=== PATIENT | female | born 1960 | race Caucasian/White ===

== ENCOUNTER 2025-01-07 01:00 | Observation (INO) ==
[2025-01-07] MEDS ORDERED: DOCUSATE SODIUM 100 MG CAPSULE PO PRN (01:35)
[2025-01-07] MEDS ORDERED: MORPHINE SULFATE 2 MG/ML CARTRIDGE IV PRN (01:35)
[2025-01-07] MEDS ORDERED: ACETAMINOPHEN 1000 MG/100 ML 1,000 MG/100 ML IV.SOLN IV PRN (01:41)
[2025-01-07] MEDS: 0.9 % SODIUM CHLORIDE 1000 ML 1,000 ML IV SCH (02:30)
[2025-01-07] MEDS: KETOROLAC 30 MG/ML INJ VIAL IVP PRN (02:33)
[2025-01-07] MEDS: ONDANSETRON HCL/PF 4 MG/2 ML VIAL INJ PRN (02:34)
[2025-01-07] MEDS: ALBUMIN HUMAN 25% 100 ML IV SCH (09:19)
[2025-01-07] MEDS: PANTOPRAZOLE SODIUM 40 MG TABLET.DR PO SCH (09:19)
--- NOTE | 2025-01-07 10:26 | History & Physical Report ---
H&P: HPI History of Present Illness Chief complaint: ongoing wound care, hydration therapy Narrative: Patient is a 64-year-old female admitted to Med/Surg from [facility] for ongoing wound care and hydration therapy where she was admitted from [facility] [place] on 01/02/2025 for wounds on her back and buttocks needing surgical intervention and appropiate dressings and original HPI from 01/01/2025 Ms. Shelby was admitted on 01/01/25 from the ED where she presented by EMS due to AMS, weakness found at home under garbage covered in roaches. She is awake this morning oriented to day but does not recall the events that led her here. APS has an ongoing case with her. WBC elevated on admit at 22 down to 18 this morning still no source of infection CXR and UA negative. BUN initially 141 down to 122 this morning, creatinine 3.3 to 2.7, ck 1387 to 991. Patient is on farxiga at home. Review of Systems Status of ROS 10 or more systems reviewed and unremark able except as noted in history and below Constitutional Reports: fatigue and malaise; Denies: fever, chills or change in weight Eyes Denies: change in vision, blurry vision, blind spots or light sensitivity Ears, nose, mouth, and throat Denies: throat pain, neck pain, throat swelling or difficulty swallowing Cardiovascular Denies: chest pain, palpitations, edema or swelling of feet/ankles Respiratory Reports: cough; Denies: shortness of breath, wheezing or stridor Gastrointestinal Reports: diarrhea (c. diff negative prior to return to [place]); Denies: abdominal pain, nausea, vomiting, coffee grounds in vomit, heartburn, constipation or difficulty swallowing Genitourinary Reports: urinary incontinence; Denies: painful urination, urinary frequency or urinary urgency Musculoskeletal Reports: limited range of motion and muscle weakness; Denies: back pain, neck pain, extremity pain or extremity swelling Integumentary/Breast Reports: skin pain and sores; Denies: rash, itching or redness Neurological Reports: lack of coordination; Denies: headache or numbness in extremities Psychiatric Reports: anxiety (not had xanax recently and she states she is all to pieces), memory loss and difficulty concentrating; Denies: mood swings, panic attacks or change in sleep pattern Endocrine Reports: fatigue; Denies: excessive urination, excessive thirst or cold intolerance Hematologic/Lymphatic Denies: easy bruising, easy bleeding or enlarged lymph nodes Allergic/Immunologic Denies: hives, throat swelling, tongue swelling, facial swelling, wheezing or itchy eyes PFSH PFSH Medical History Drug abuse and dependence Rhabdomyolysis TIA (transient ischemic attack) Kidney disease Anxiety Acute rheumatoid arthritis Blank's palsy Colon cancer Diabetes Surgical History History of colon resection Hx of breast reduction, elective Hx of cholecystectomy Hx of heart artery stent Social History Smoking status: never smoker Problems where you live: pests, such as bugs, ants, or mice Highest level of school completed/degree received: decline to answer Little interest or pleasure in doing things: not at all Feeling down, depressed, or hopeless: not at all Feel stressed/tense/nervous/anxious/difficulty sleeping: decline to answer Life stressors: other (none) Life stressor details: Current living and medical situation Due to disability, difficulty making decisions: No Gender Identity: female Meds Home Medications and Allergies Home Medications Medication Instructions Recorded Confirmed Type dexlansoprazole 60 mg 60 mg PO DAILY 03/09/24 01/07/25 History capsule,biphase delayed release famotidine 40 mg tablet 40 mg PO DAILY 03/09/24 01/07/25 History levothyroxine 75 mcg tablet 75 mcg PO DAILY 03/09/24 01/07/25 History oxycodone myristate 9 mg capsule 9 mg PO DAILY PRN pain (scale 03/09/24 01/07/25 History sprinkle extended release 12 score 7-10) hr(DON'T CRUSH) (Xtampza ER) pregabalin 200 mg capsule 200 mg PO TID 03/09/24 01/07/25 History tizanidine 4 mg tablet 4 mg PO TID 03/09/24 01/07/25 History ubrogepant 100 mg tablet (Ubrelvy) 100 mg PO DAILY PRN asthma 03/09/24 01/07/25 History hydrocodone 10 mg-acetaminophen 1 tab PO Q12H PRN pain 11/19/24 01/07/25 History 325 mg tablet promethazine 25 mg tablet 25 mg PO Q8H PRN nausea and 11/19/24 01/07/25 History vomiting quetiapine 100 mg tablet 100 mg PO BEDTIME 11/19/24 01/07/25 History losartan 100 mg tablet 100 mg PO DAILY htn #30 tabs 11/21/24 01/07/25 Rx magnesium 200 mg tablet 400 mg (2 x 200 mg) PO BID low mag 11/21/24 01/07/25 Rx #20 tabs alcohol swabs (Alcohol Pads) 1 pad topical BID 01/01/25 01/07/25 History alprazolam 1 mg tablet 1 mg PO TID 01/01/25 01/07/25 History clopidogrel 75 mg tablet 75 mg PO DAILY 01/01/25 01/07/25 History dapagliflozin propanediol 10 mg 10 mg PO DAILY 01/01/25 01/07/25 History tablet (Farxiga) fluticasone fur. 100 mcg-umeclid 1 inh inhalation Q24H 01/01/25 01/07/25 History 62.5 mcg-vilant 25 mcg inhalat.powder (Trelegy Ellipta) mirabegron 25 mg tablet,extended 25 mg PO Q24H PRN overactive 01/01/25 01/07/25 History release 24 hr (Myrbetriq) bladder sertraline 50 mg tablet 50 mg PO Q24H 01/01/25 01/07/25 History Allergies Allergy/AdvReac Type Severity Reaction Status Date / Time amoxicillin (From Augmentin) Allergy Verified 12/31/24 17:11 clavulanic acid (From Allergy Verified 12/31/24 17:11 Augmentin) codeine Allergy Verified 12/31/24 17:11 Exam Exam: Patient in NAD. Constitutional: abnormal general appearance (disheveled), (chronically ill) and (frail appearing), no apparent distress, average body habitus, limitations noted (behavioral limitations) and (physical limitations) and level of alertness abnormal (confused) Vital Signs - 24 hr 01/07/25 01:29 01/07/25 01:36 01/07/25 04:16 Temperature 98.3 F 98.6 F Pulse Rate [Left] 85 82 Respiratory Rate 17 17 Blood Pressure [Le ft Arm] 131/66 133/64 Pulse Oximetry 98 99 Oxygen Delivery Me thod Room Air Room Air 01/07/25 08:01 Temperature 97.9 F Pulse Rate [Left] 91 H Respiratory Rate 20 Blood Pressure [Le ft Arm] 164/79 Pulse Oximetry 99 Oxygen Delivery Me thod Room Air HENMT: normocephalic, head/scalp atraumatic, hearing grossly normal bilaterally, external ears normal, TMs abnormal, nasal mucous membranes normal, external nose normal, oral mucous membranes abnormal (dry), oropharynx normal, dentition abnormal and gingiva normal Eyes: PERRL, EOMs intact bilaterally, conjunctivae normal, no scleral icterus, no papilledema, normal visual degroot by confrontation, alignment normal, periorbital findings normal and no nystagmus Neck/C-Spine: trachea midline, cervical spine nontender, abnormal cervical ROM noted, supple, no meningeal signs, thyroid normal and no carotid bruits Lymph: no lymphadenopathy noted and no lymphedema noted Chest: inspection of chest normal Respiratory: breath sounds equal bilaterally, normal respiratory effort, clear to auscultation bilaterally, no wheezes, no rales, no retractions and no use of accessory muscles Cardiovascular: normal heart rate noted, regular rhythm noted, no gallop, no rub, no murmur, no JVD, no clicks, peripheral pulses 2+ throughout and no bruits noted Gastrointestinal: abdomen normal to inspection, abdomen soft to palpation, nontender to palpation, nondistended, normoactive bowel sounds, hepatosplenomegaly noted, no masses, no pulsatile mass, no ascites and no hernia Genitourinary: no CVA tenderness, bladder normal to palpation and external appearance abnormal Back/Pelvis: spine abnormal to inspection (wounds thoracic to lumbar - improving), thoracic spine tenderness noted, no lumbar spine tenderness, thoracic spine ROM abnormal, lumbar spine ROM abnormal and straight leg raise abnormal Extremities: normal to inspection, normal to palpation, no tenderness, full ROM, no joint enlargement and no deformity Neurology: cage maker II-XII intact, no movement abnormality noted, no focal motor deficit noted, sensory deficit noted, deep tendon reflexes 2+ bilaterally, gait abnormality noted (unable to access), speech abnormality noted, coordination abnormality noted, no pronator drift noted, no fasciculations noted and GCS calculation - Eye opening: Spontaneous Verbal response: Confused Motor response: Obey commands [place] Coma Scale total score: 14 No new movement Abnormality or focal motor deficits. Patient continues to have debilitating weakness is not able to get up or move on her own. Psychiatry: Mental Status Exam documented within this Exam's Psych section mental status grossly normal, orientation abnormal (disoriented to time), though t process abnormality noted (confused), cooperative, affect abnormality noted (depressed) and (flat), psychomotor abnormality noted (slow) and memory abnormal talking today and recognizes me without an introduction today Feel stressed/tense/nervous/anxious/difficulty sleeping: not at all Skin: skin color abnormal Reports (pale), rash noted (posterior sacrum - improving) Reports (excoriated), lesion(s) noted, no ecchymosis noted, wound(s) noted (dressing in place so not seen today) Reports (deep), no lacerations, skin turgor abnormal, no jaundice, no petechiae, no mottling, nails abnormality noted and no alopecia Assessment and Plan Assessment and Plan (1) Pressure ulcer of back: Qualifiers: Pressure injury stage: unstageable Qualified Code(s): L89.100 - Pressure ulcer of unspecified part of back, unstageable Code(s): L89.109 - Pressure ulcer of unspecified part of back, unspecified stage (2) Bed sore on ankle, right, unstageable: Code(s): L89.510 - Pressure ulcer of right ankle, unstageable (3) Dehydration: Code(s): E86.0 - Dehydration (4) Diabetes: Qualifiers: Diabetes mellitus complication status: with hyperglycemia Diabetes mellitus care home insulin use: with care home use Diabetes mellitus type: type 2 Qualified Code(s): E11.65 - Type 2 diabetes mellitus with hyperglycemia; Z79.4 - long term care social worker (current) use of insulin Code(s): E11.9 - Type 2 diabetes mellitus without complications (5) Hypoalbuminemia: Code(s): E88.09 - Other disorders of plasma-protein metabolism, not elsewhere classified (6) Bed sore on ankle, left, unstageable: Code(s): L89.520 - Pressure ulcer of left ankle, unstageable (7) Dementia: Qualifiers: Dementia behavioral or psychological symptom: unspecified whether behavioral, psychotic, or mood disturbance or anxiety Dementia severity: unspecified severity Dementia type: unspecified type Qualified Code(s): F03.90 - Unspecified dementia, unspecified severity, without behavioral disturbance, psychotic disturbance, mood disturbance, and anxiety Code(s): F03.90 - Unspecified dementia, unspecified severity, without behavioral disturbance, psychotic disturbance, mood disturbance, and anxiety (8) Debility: Code(s): R53.81 - Other malaise (9) Chronic pain: Qualifiers: Chronic pain type: other chronic pain Qualified Code(s): G89.29 - Other chronic pain Code(s): G89.29 - Other chronic pain (10) CAD (coronary artery disease): Qualifiers: Associated angina: without angina Coronary Disease-Associated Artery/Lesion type: unspecified vessel or lesion type [place] vs. transplanted heart: [place] heart Qualified Code(s): I25.10 - Atherosclerotic heart disease of [place] coronary artery without angina pectoris Code(s): I25.10 - Atherosclerotic heart disease of [place] coronary artery without angina pectoris (11) HTN (hypertension): Qualifiers: Hypertension type: primary hypertension Qualified Code(s): I10 - Essential (primary) hypertension Code(s): I10 - Essential (primary) hypertension (12) Failure to thrive in adult: Code(s): R62.7 - Adult failure to thrive Plan Sodium Chloride 1,000 mls @ 75 mls/hr IV CONT Albumin Human 100 mls @ 60 mls/hr IV ONCE Pantoprazole Sodium 40 mg PO DAILY Ondansetron Hcl 4 mg INJ Q6H PRN Docusate Sodium 100 mg PO DAILY PRN Morphine Sulfate 2 mg IV Q4H PRN Acetaminophen 1,000 mg in 100 mls @ 400 mls/hr IV Q6H PRN Ketorolac Tromethamine 15 mg IVP Q6H PRN Placement for Correction PT/OT/ST Rachelal
[2025-01-07] MEDS ORDERED: HYDROCODONE/APAP 10/325 MG 1 EACH TABLET PO PRN (12:12)
[2025-01-07] MEDS ORDERED: ALPRAZolam 0.5 MG TABLET PO PRN (12:14)
[2025-01-07] MEDS ORDERED: PANTOPRAZOLE SODIUM 40 MG TABLET.DR PO SCH (13:00)
[2025-01-07] MEDS: CLOPIDOGREL BISULFATE 75 MG TABLET PO SCH (13:21)
[2025-01-07] MEDS: EMPAGLIFLOZIN 10 MG TABLET PO SCH (13:21)
[2025-01-07] MEDS: LOSARTAN POTASSIUM 50 MG TABLET PO SCH (13:21)
[2025-01-07] MEDS: PREGABALIN 100 MG CAPSULE PO SCH (15:21)
[2025-01-07] MEDS: TIZANIDINE HCL 4 MG TABLET PO SCH (15:21)
[2025-01-07] MEDS: BUDESONIDE/FORMOTEROL FUMARATE 160/4.5 MCG INH SCH (21:09)
[2025-01-07] MEDS: FAMOTIDINE 20 MG TABLET PO SCH (21:10)
[2025-01-07] MEDS: QUETIAPINE FUMARATE 100 MG TABLET PO SCH (21:10)
[2025-01-07] MEDS: MAGNESIUM OXIDE 400 MG TABLET PO SCH (21:10)
[2025-01-08 05:22] LABS: Basophils #(Absolute) Auto 0.1 (0.0-0.1); Basophils%(Percent) Auto 0.8 (0.1-0.85); Eosinophils#(Absolute)Auto 0.2 (0.0-0.2); Eosinophils%(Percent) Auto 3.3 % (0.4-2.8); Granulocytes % - Auto 54.9 % (47.8-71.3); Granulocytes#(Absolute)- Auto 3.9 (2.3-6.0); Hematocrit 33.3 % (35.9-46.7); Mean Corpuscular Volume 92.9 fl (81.0-93.7); Monocytes #(Absolute)- Auto 0.5 (1.1-3.1); Monocytes %(Percent)- Auto 7.1 % (3.6-9.8); Platelet Count 113 K/uL (152-353); White Blood Count 7.1 K/uL (4.3-9.3)
[2025-01-08] MEDS: LEVOTHYROXINE SODIUM 75 MCG TABLET PO SCH (08:57)
[2025-01-08] MEDS: TIOTROPIUM BROMIDE 18 MCG CAP.W.DEV INH SCH (08:57)
[2025-01-08] MEDS: SERTRALINE HCL 50 MG TABLET PO SCH (08:58)
[2025-01-08] MEDS: MAGNESIUM OXIDE 400 MG TABLET PO ONE ×2 (10:20→10:48)
--- NOTE | 2025-01-08 10:28 | Progress Note ---
Progress Note: Subjective Subjective Interval history: Patient had an uneventful night. Exam Exam: Patient in NAD. Constitutional: abnormal general appearance (disheveled), (chronically ill) and (frail appearing), no apparent distress, average body habitus, limitations noted (behavioral limitations) and (physical limitations) and level of alertness abnormal (confused) Vital Signs - 24 hr 01/07/25 12:00 01/07/25 13:21 01/07/25 16:00 Temperature 98.2 F 98.2 F Pulse Rate [Left] 82 79 Respiratory Rate 19 17 Blood Pressure 149/71 Blood Pressure [Le ft Arm] 149/71 188/91 Pulse Oximetry 96 99 Oxygen Delivery Me thod Room Air Room Air 01/07/25 19:29 01/07/25 23:19 01/08/25 03:35 Temperature 98.5 F 98.0 F 98.0 F Pulse Rate [Left] 68 61 68 Respiratory Rate 16 17 19 Blood Pressure Blood Pressure [Le ft Arm] 143/62 105/49 124/43 Pulse Oximetry 97 98 98 Oxygen Delivery Me thod Room Air Room Air Room Air 01/08/25 07:41 01/08/25 08:59 Temperature 98.8 F Pulse Rate [Left] 71 Respiratory Rate 20 Blood Pressure 115/79 Blood Pressure [Le ft Arm] 115/79 Pulse Oximetry 97 Oxygen Delivery Me thod Room Air HENMT: normocephalic, head/scalp atraumatic, hearing grossly normal bilaterally, external ears normal, TMs abnormal, nasal mucous membranes normal, external nose normal, oral mucous membranes abnormal (dry), oropharynx normal, dentition abnormal and gingiva normal Eyes: PERRL, EOMs intact bilaterally, conjunctivae normal, no scleral icterus, no papilledema, normal visual degroot by confrontation, alignment normal, periorbital findings normal and no nystagmus Neck/C-Spine: trachea midline, cervical spine nontender, abnormal cervical ROM noted, supple, no meningeal signs, thyroid normal and no carotid bruits Lymph: no lymphadenopathy noted and no lymphedema noted Chest: inspection of chest normal Respiratory: breath sounds equal bilaterally, normal respiratory effort, clear to auscultation bilaterally, no wheezes, no rales, no retractions and no use of accessory muscles Cardiovascular: normal heart rate noted, regular rhythm noted, no gallop, no rub, no murmur, no JVD, no clicks, peripheral pulses 2+ throughout and no bruits noted Gastrointestinal: abdomen normal to inspection, abdomen soft to palpation, nontender to palpation, nondistended, normoactive bowel sounds, hepatosplenomegaly noted, no masses, no pulsatile mass, no ascites and no hernia Genitourinary: no CVA tenderness, bladder normal to palpation and external appearance abnormal Back/Pelvis: spine abnormal to inspection (wounds thoracic to lumbar - improving), thoracic spine tenderness noted, no lumbar spine tenderness, thoracic spine ROM abnormal, lumbar spine ROM abnormal and straight leg raise abnormal Extremities: normal to inspection, normal to palpation, no tenderness, full ROM, no joint enlargement and no deformity Neurology: screen printing cloth spreader II-XII intact, no movement abnormality noted, no focal motor deficit noted, sensory deficit noted, deep tendon reflexes 2+ bilaterally, gait abnormality noted (unable to access), speech abnormality noted, coordination abnormality noted, no pronator drift noted, no fasciculations noted and GCS calculation - Eye opening: Spontaneous Verbal response: Confused Motor response: Obey commands [place] Coma Scale total score: 14 No new movement Abnormality or focal motor deficits. Patient continues to have debilitating weakness is not able to get up or move on her own. Psychiatry: Mental Status Exam documented within this Exam's Psych section mental status grossly normal, orientation abnormal (disoriented to time), thought process abnormality noted (confused), cooperative, affect abnormality noted (depressed) and (flat), psychomotor abnormality noted (slow) and memory abnormal talking today and recognizes me without an introduction today Skin: skin color abnormal Reports (pale), rash noted (posterior sacrum - improving) Reports (excoriated), lesion(s) noted, no ecchymosis noted, wound(s) noted (dressing in place so not seen today) Reports (deep), no lacerations, skin turgor abnormal, no jaundice, no petechiae, no mottling, nails abnormality noted and no alopecia Progress Note: Objective Labs Labs: CBC 01/08/25 Range/Units 05:15 WBC 7.1 (4.3-9.3) K/uL RBC 3.6 L (4.00-5.50) M/uL Hgb 11.2 L (12.5-15.8) gm/dL Hct 33.3 L (35.9-46.7) % Plt Count 113 L (152-353) K/uL Gran % 54.9 (47.8-71.3) % Lymph % (Auto) 33.9 (20.0-43.0) % [place] % (Auto) 7.1 (3.6-9.8) % Eos % (Auto) 3.3 H (0.4-2.8) % Baso % (Auto) 0.8 (0.1-0.85) Lymph # (Auto) 2.4 (1.1-3.1) [place] # (Auto) 0.5 L (1.1-3.1) Eos # (Auto) 0.2 (0.0-0.2) Baso # (Auto) 0.1 (0.0-0.1) Absolute Gran (auto) 3.9 (2.3-6.0) CMP 01/08/25 05:15 Sodium 146 H Potassium 3.0 L Chloride 110.0 H Carbon Dioxide 28 BUN 11 Creatinine 0.5 L Glucose 136 H Calcium 8.1 L Liver Function 01/08/25 Range/Units 05:15 Total Bilirubin 0.19 (0.0-1.0) mg/dL AST 16 (15-37) U/L ALT 17 L (30-65) U/L Alkaline Phosphatase 56 (50-136) U/L Albumin 2.5 L (3.4-5.0) g/dL Progress Note: A&P Assessment and Plan (1) Pressure ulcer of back: Qualifiers: Pressure injury stage: unstageable Qualified Code(s): L89.100 - Pressure ulcer of unspecified part of back, unstageable (2) Bed sore on ankle, right, unstageable: (3) Dehydration: (4) Diabetes: Qualifiers: Diabetes mellitus complication status: with hyperglycemia Diabetes mellitus [place] insulin use: with residential use Diabetes mellitus type: type 2 Qualified Code(s): E11.65 - Type 2 diabetes mellitus with hyperglycemia; Z79.4 - care home (current) use of insulin (5) Hypoalbuminemia: (6) Bed sore on ankle, left, unstageable: (7) Dementia: Qualifiers: Dementia behavioral or psychological symptom: unspecified whether behavioral, psychotic, or mood disturbance or anxiety Dementia severity: unspecified severity Dementia type: unspecified type Qualified Code(s): F03.90 - Unspecified dementia, unspecified severity, without behavioral disturbance, psychotic disturbance, mood disturbance, and anxiety (8) Debility: (9) Chronic pain: Qualifiers: Chronic pain type: other chronic pain Qualified Code(s): G89.29 - Other chronic pain (10) CAD (coronary artery disease): Qualifiers: Associated angina: without angina Coronary Disease-Associated Artery/Lesion type: unspecified vessel or lesion type [place] vs. transplanted heart: [place] heart Qualified Code(s): I25.10 - Atherosclerotic heart disease of [place] coronary artery without angina pectoris (11) HTN (hypertension): Qualifiers: Hypertension type: primary hypertension Qualified Code(s): I10 - Essential (primary) hypertension (12) Failure to thrive in adult: (13) Anemia: Qualifiers: Anemia type: other cause Other causes of anemia: other cause, not classified Qualified Code(s): D64.89 - Other specified anemias (14) Hypokalemia: (15) Hypernatremia: (16) Hyperchloremia: (17) Hypocalcemia: (18) Hypomagnesemia: (19) Hypoproteinemia: Plan Sodium Chloride 1,000 mls @ 75 mls/hr IV CONT Albumin Human 100 mls @ 60 mls/hr IV ONCE Pantoprazole Sodium 40 mg PO DAILY Clopidogrel Bisulfate 75 mg PO DAILY Empagliflozin 10 mg PO DAILY Famotidine 40 mg PO BEDTIME Budesonide/Formoterol Fumarate 160/4.5 (2) puff INH BID Levothyroxine Sodium 75 mcg PO DAILY Losartan Potassium 100 mg PO DAILY Magnesium Oxide 400 mg PO BID Pregabalin 200 mg PO TID Quetiapine Fumarate 100 mg PO BEDTIME Sertraline Hcl 50 mg PO DAILY Tizanidine Hcl 4 mg PO TID Tiotropium [place] 18 mcg INH DAILY Potassium Chloride 10 meq in 100 mls @ 100 mls/hr IV ONCE Potassium Chloride 10 meq in 100 mls @ 100 mls/hr IV ONCE Ondansetron Hcl 4 mg INJ Q6H PRN Docusate Sodium 100 mg PO DAILY PRN Morphine Sulfate 2 mg IV Q4H PRN Acetaminophen 1,000 mg in 100 mls @ 400 mls/hr IV Q6H PRN Ketorolac Tromethamine 15 mg IVP Q6H PRN Hydrocodone Bitart/Acetaminophen 10-325 mg (1) each PO Q12H PRN Alprazolam 0.5 mg PO Q12H PRN Placement for Jail PT to Eval today. dressing changed today secondary to being soiled Fall Risk Details Hauser Fall Scale Risk Level: High Fall Risk Current Medications: Current Medications Hydrocodone Bitart/Acetaminophen (Hydrocodone/Apap 10/325 Mg 1 Each Tablet) 1 each PO Q12H PRN PRN Reason: Moderate Pain SCALE 5-7 Alprazolam (Alprazolam 0.5 Mg Tablet) 0.5 mg PO Q12H PRN PRN Reason: anxiety Budesonide/Formoterol Fumarate (Budesonide/Formoterol Fumarate 160/4.5 Mcg) 2 puff INH BID [facility] Last Admin: 01/08/25 08:59 Dose: 2 puff Clopidogrel Bisulfate (Clopidogrel Bisulfate 75 Mg Tablet) 75 mg PO DAILY [facility] Last Admin: 01/08/25 08:58 Dose: 75 mg Docusate Sodium (Docusate Sodium 100 Mg Capsule) 100 mg PO DAILY PRN PRN Reason: Constipation Empagliflozin (Empagliflozin 10 Mg Tablet) 10 mg PO DAILY [facility] Last Admin: 01/08/25 08:57 Dose: 10 mg Famotidine (Famotidine 20 Mg Tablet) 40 mg PO BEDTIME [facility] Last Admin: 01/07/25 21:10 Dose: 40 mg Acetaminophen (Acetaminophen 1000 Mg/100 Ml) 1,000 mg in 100 mls @ 400 mls/hr IV Q6H PRN PRN Reason: Pain Albumin Human (Albumin Human 25%) 100 mls @ 60 mls/hr IV ONCE ROSS Last Infusion: 01/07/25 11:00 Dose: Infused Sodium Chloride (Sodium Chloride 0.45%) 1,000 mls @ 75 mls/hr IV CONT ROSS Potassium Chloride (Potassium Cl 10 Meq/100 Ml Raina) 10 meq in 100 mls @ 100 mls/hr IV ONCE ONE Stop: 01/08/25 10:59 Potassium Chloride (Potassium Cl 10 Meq/100 Ml Raina) 10 meq in 100 mls @ 100 mls/hr IV ONCE ONE Stop: 01/08/25 12:59 Ketorolac Tromethamine (Ketorolac 30 Mg/Ml Inj Vial) 15 mg IVP Q6H PRN PRN Reason: Moderate Pain SCALE 5-7 Stop: 01/12/25 01:40 Last Admin: 01/07/25 09:19 Dose: 15 mg Levothyroxine Sodium (Levothyroxine Sodium 75 Mcg Tablet) 75 mcg PO DAILY [facility] Last Admin: 01/08/25 08:57 Dose: 75 mcg Losartan Potassium (Losartan Potassium 50 Mg Tablet) 100 mg PO DAILY [facility] Last Admin: 01/08/25 08:59 Dose: 100 mg Magnesium (Magnesium Oxide 400 Mg Tablet) 400 mg PO BID [facility] Last Admin: 01/08/25 08:58 Dose: 400 mg Morphine Sulfate (Morphine Sulfate 2 Mg/Ml Cartridge) 2 mg IV Q4H PRN PRN Reason: Severe Pain SCALE 8-10 Ondansetron HCl (Ondansetron Hcl/Pf 4 Mg/2 Ml Vial) 4 mg INJ Q6H PRN PRN Reason: Nausea And Vomiting Last Admin: 01/07/25 09:19 Dose: 4 mg Pantoprazole Sodium (Pantoprazole Sodium 40 Mg Tablet.Dr) 40 mg PO DAILY [facility] Last Admin: 01/08/25 08:57 Dose: 40 mg Pregabalin (Pregabalin 100 Mg Capsule) 200 mg PO TID [facility] Last Admin: 01/08/25 08:59 Dose: 200 mg Quetiapine Fumarate (Quetiapine Fumarate 100 Mg Tablet) 100 mg PO BEDTIME [facility] Last Admin: 01/07/25 21:10 Dose: 100 mg Sertraline HCl (Sertraline Hcl 50 Mg Tablet) 50 mg PO DAILY [facility] Last Admin: 01/08/25 08:58 Dose: 50 mg Tiotropium [place] (Tiotropium [place] 18 Mcg Cap.W.Dev) 18 mcg INH DAILY [facility] Last Admin: 01/08/25 08:57 Dose: 18 mcg Tizanidine HCl (Tizanidine Hcl 4 Mg Tablet) 4 mg PO TID [facility] Last Admin: 01/08/25 08:58 Dose: 4 mg Time Spent With Patient Time: Total time spent is greater than 50% in coordination of care (as documented) at patient's floor/unit and/or counseling patient: Time with patient: greater than 35 minutes
[2025-01-08] MEDS: POTASSIUM CHLORIDE IN WATER 10 MEQ/100 ML PIGGYBACK IV ONE ×2 (10:48→12:35)
[2025-01-08] MEDS: POTASSIUM CHLORIDE 20 MEQ TAB.ER.PRT PO ONE (10:48)
[2025-01-08] MEDS: SODIUM CHLORIDE 0.45 % 1,000 ML IV SCH (10:49)
[2025-01-09 06:47] LABS: Basophils #(Absolute) Auto 0.1 (0.0-0.1); Basophils%(Percent) Auto 0.6 (0.1-0.85); Eosinophils#(Absolute)Auto 0.2 (0.0-0.2); Eosinophils%(Percent) Auto 2.3 % (0.4-2.8); Granulocytes % - Auto 57.1 % (47.8-71.3); Granulocytes#(Absolute)- Auto 5.3 (2.3-6.0); Hematocrit 32.4 % (35.9-46.7); Mean Corpuscular Volume 93.3 fl (81.0-93.7); Monocytes #(Absolute)- Auto 0.7 (1.1-3.1); Platelet Count 120 K/uL (152-353); White Blood Count 9.3 K/uL (4.3-9.3)
[2025-01-09 06:56] LABS: Potassium 3.6 mmol/L (3.6-5.2)
[2025-01-09 07:49] VITALS: BP 129/65; PULSE 69; RESP 19; TEMP 98.3
--- NOTE | 2025-01-09 09:35 | Discharge Summary ---
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 Diabetes mellitus type: type 2 Qualified Code(s): E11.65 - Type 2 diabetes mellitus with hyperglycemia; Z79.4 - snf (current) use of insulin (5) Hypoalbuminemia: (6) Bed sore on ankle, left, unstageable: (7) Dementia: Qualifiers: Dementia behavioral or psychological symptom: unspecified whether behavioral, psychotic, or mood disturbance or anxiety Dementia severity: unspecified severity Dementia type: unspecified type Qualified Code(s): F03.90 - Unspecified dementia, unspecified severity, without behavioral disturbance, psychotic disturbance, mood disturbance, and anxiety (8) Debility: (9) Chronic pain: Qualifiers: Chronic pain type: other chronic pain Qualified Code(s): G89.29 - Other chronic pain (10) CAD (coronary artery disease): Qualifiers: Associated angina: without angina Coronary Disease-Associated Artery/Lesion type: unspecified vessel or lesion type [place] vs. transplanted heart: [place] heart Qualified Code(s): I25.10 - Atherosclerotic heart disease of [place] coronary artery without angina pectoris (11) HTN (hypertension): Qualifiers: Hypertension type: primary hypertension Qualified Code(s): I10 - Essential (primary) hypertension (12) Failure to thrive in adult: (13) Anemia: Assessment and plan: stable Qualifiers: Anemia type: other cause Other causes of anemia: other cause, not classified Qualified Code(s): D64.89 - Other specified anemias (14) Hypokalemia: Assessment and plan: resolved (15) Hypernatremia: Assessment and plan: resolved (16) Hyperchloremia: Assessment and plan: resolved (17) Hypocalcemia: Assessment and plan: resolved (18) Hypomagnesemia: Assessment and plan: resolved (19) Hypoproteinemia: (20) Rhabdomyolysis: Qualifiers: Rhabdomyolysis type: non-traumatic Qualified Code(s): M62.82 - Rhabdomyolysis (21) Acute renal injury: Assessment and plan: improved (22) Fall as cause of accidental injury at home as place of occurrence: Qualifiers: Encounter type: subsequent encounter Qualified Code(s): W19.XXXD - Unspecified fall, subsequent encounter; Y92.009 - Unspecified place in unspecified non-institutional (private) residence as the place of occurrence of the external cause (23) Altered mental state: Qualifiers: Altered mental status type: unspecified Qualified Code(s): R41.82 - Altered mental status, unspecified (24) Drug abuse and dependence: DS: Summary Hospital Course Hospital Course: Patient admitted for ongoing wound care and Hydration therapy. She has history of failure to thrive, DM and was on Farxiga at home. Patient unable to care for self. VS and Labs have stablized and patient feeling much better. Needs wound care for wound on bilateral buttocks and ankles, have not been staged. She was sent out for debridement and has been getting mepilex AG Q3D or prn. Discharge to Snf. Adult protective service involved in patient case. Recent Head CT negative for any acute disease. Patient has been on NS @ 75ml/hr. Protonix. Status at Discharge Cognitive/behavioral status at discharge: Stable Functional status at discharge: bed bound Overall status at discharge: patient is progressing back to baseline Time Spent with Patient Time attestation: Total time spent providing and/or coordinating discharge services: Time spent: greater than 30 minutes Exam Exam: Patient in NAD. Constitutional: abnormal general appearance (disheveled), (chronically ill) and (frail appearing), no apparent distress, average body habitus, limitations noted (behavioral limitations) and (physical limitations) and level of alertness abnormal (confused) Vital Signs - 24 hr 01/08/25 12:00 01/08/25 16:00 01/08/25 19:40 Temperature 97.9 F 98.5 F 98.4 F Pulse Rate [Left] 79 72 67 Respiratory Rate 19 16 17 Blood Pressure [Le ft Arm] 114/65 124/56 101/52 Pulse Oximetry 98 97 98 Oxygen Delivery Me thod Room Air Room Air Room Air 01/08/25 23:17 01/09/25 03:56 01/09/25 07:48 Temperature 99.2 F 98.8 F 98.3 F Pulse Rate [Left] 78 74 69 Respiratory Rate 16 18 19 Blood Pressure [Le ft Arm] 106/35 92/47 129/65 Pulse Oximetry 98 98 97 Oxygen Delivery Wa thod Room Air Room Air Room Air HENMT: normocephalic, head/scalp atraumatic, hearing grossly normal bilaterally, external ears normal, TMs abnormal, nasal mucous membranes normal, external nose normal, oral mucous membranes abnormal (dry), oropharynx normal, dentition abnormal and gingiva normal Eyes: PERRL, EOMs intact bilaterally, conjunctivae normal, no scleral icterus, normal visual degroot by confrontation, alignment normal, periorbital findings normal and no nystagmus Neck/C-Spine: trachea midline, abnormal cervical ROM noted and supple Lymph: no lymphadenopathy noted and no lymphedema noted Chest: inspection of chest normal Respiratory: breath sounds equal bilaterally, normal respiratory effort, clear to auscultation bilaterally, no wheezes, no rales, no retractions and no use of accessory muscles Cardiovascular: normal heart rate noted, regular rhythm noted, no gallop, no rub, no murmur, no JVD and peripheral pulses 2+ throughout Gastrointestinal: abdomen normal to inspection, abdomen soft to palpation, nontender to palpation, nondistended, normoactive bowel sounds, hepatosplenomegaly noted, no masses, no pulsatile mass and no ascites Genitourinary: no CVA tenderness and external appearance abnormal Back/Pelvis: spine abnormal to inspection (wounds thoracic to lumbar - improving), thoracic spine tenderness noted, no lumbar spine tenderness, thoracic spine ROM abnormal, lumbar spine ROM abnormal and straight leg raise abnormal Extremities: normal to inspection, normal to palpation, no tenderness, no joint enlargement and no deformity Neurology: inside sales specialist II-XII intact, no movement abnormality noted, no focal motor deficit noted, sensory deficit noted, deep tendon reflexes 2+ bilaterally, gait abnormality noted (unable to access), speech normal, coordination abnormality noted, no pronator drift noted, no fasciculations noted and GCS calculation - Eye opening: Spontaneous Verbal response: Confused Motor response: Obey commands Tanisha Coma Scale total score: 14 No new movement Abnormality or focal motor deficits. Patient continues to have debilitating weakness is not able to get up or move on her own. Psychiatry: mental status grossly normal, orientation abnormal (disoriented to time), thought process abnormality noted (confused), cooperative, affect abnormality noted (depressed) and (flat), psychomotor abnormality noted (slow) and memory abnormal talking today and recognizes me without an introduction today Skin: skin color abnormal Reports (pale), rash noted (posterior sacrum - improving) Reports (excoriated), lesion(s) noted, no ecchymosis noted, wound(s) noted (dressing in place so not seen today) Reports (deep), no lacerations, skin turgor abnormal, no jaundice, no petechiae and nails abnormality noted DS: Data Data Completed and Pending Completed studies during hospitalization: Head CT nothing acute Labs on day of discharge: Labs from last 24 hours 01/09/25 06:28 WBC 9.3 RBC 3.5 L Hgb 10.9 L Hct 32.4 L MCV 93.3 MCH 31.3 MCHC 33.6 RDW 14.3 H Plt Count 120 L MPV 9.1 Gran % 57.1 Lymph % (Auto) 33.0 [place] % (Auto) 7.0 Eos % (Auto) 2.3 Baso % (Auto) 0.6 Lymph # (Auto) 3.1 [place] # (Auto) 0.7 L Eos # (Auto) 0.2 Baso # (Auto) 0.1 Absolute Gran (auto) 5.3 Sodium 144 Potassium 3.6 Chloride 111.0 H Carbon Dioxide 28 Anion Gap 5.0 BUN 9 Creatinine 0.7 Estimated GFR 97.7 Glucose 112 H Calcium 7.9 L Phosphorus 2.8 Magnesium 1.5 L Total Bilirubin 0.21 AST 33 ALT 24 L Alkaline Phosphatase 56 Total Protein 4.9 L Albumin 2.3 L Discharge Plan Discharge Disposition: [facility] Condition: Stable Anticipated Discharge Date/Time: 01/09/25 09:59 Discharge Medications: New alprazolam 0.5 mg Tablet 0.5 mg PO Q12H PRN (Reason: anxiety) Qty: 30 0RF Continued dexlansoprazole 60 mg capsule,biphase delayed releas 60 mg PO DAILY Patient Comments: TAKE ONE CAPSULE BY MOUTH DAILY famotidine 40 mg tablet 40 mg PO DAILY Patient Comments: TAKE ONE TABLET BY MOUTH AT BEDTIME levothyroxine 75 mcg tablet 75 mcg PO DAILY Patient Comments: TAKE ONE TABLET BY MOUTH IN THE MORNING ON AN EMPTY STOMACH pregabalin 200 mg capsule 200 mg PO TID Patient Comments: TAKE ONE CAPSULE BY MOUTH EVERY 6 HOURS tizanidine 4 mg tablet 4 mg PO TID Patient Comments: TAKE TWO TABLETS BY MOUTH THREE TIMES DAILY hydrocodone-acetaminophen 10-325 mg tablet 1 tab PO Q12H PRN (Reason: pain) Patient Comments: TAKE ONE TABLET BY MOUTH EVERY TWELVE HOURS NEEDED PATIENT STATES THAT SHE TAKES MOSTLY AT BEDTIME FOR PAIN quetiapine 100 mg tablet 100 mg PO BEDTIME Patient Comments: TAKE ONE TABLET BY MOUTH AT BEDTIME magnesium 200 mg tablet 400 mg PO BID Qty: 20 0RF losartan 100 mg tablet 100 mg PO DAILY Qty: 30 0RF sertraline 50 mg tablet 50 mg PO Q24H Patient Comments: TAKE ONE TABLET BY MOUTH DAILY clopidogrel 75 mg tablet 75 mg PO DAILY Patient Comments: TAKE ONE TABLET BY MOUTH DAILY dapagliflozin propanediol [Farxiga] 10 mg tablet 10 mg PO DAILY Patient Comments: TAKE ONE TABLET BY MOUTH DAILY Trelegy Ellipta 100-62.5-25 mcg blister with device 1 inh INHALATION Q24H Patient Comments: INHALE ONE PUFF BY MOUTH DAILY mirabegron [Myrbetriq] 25 mg tablet extended release 24 hr 25 mg PO Q24H PRN (Reason: overactive bladder) Patient Comments: TAKE ONE TABLET BY MOUTH DAILY Discontinued Ubrelvy 100 mg tablet 100 mg PO DAILY PRN (Reason: asthma) Patient Comments: TAKE 1 TABLET BY MOUTH as needed, MAY TAKE SECOND DOSE AT LEAST 2 HOURS AFTER FIRST DOSE promethazine 25 mg tablet 25 mg PO Q8H PRN (Reason: nausea and vomiting) Patient Comments: TAKE ONE TABLET BY MOUTH EVERY 8 HOURS NEEDED alprazolam 1 mg tablet 1 mg PO TID Patient Comments: TAKE ONE TABLET BY MOUTH THREE TIMES DAILY alcohol swabs [Alcohol Pads] Pads, Medicated 1 pad TOPICAL BID Patient Comments: TWICE DAILY with lantus No Action Xtampza ER 9 mg cap,sprinkl,ER12hr(DONT CRUSH) 9 mg PO DAILY PRN (Reason: pain (scale score 7-10)) Patient Comments: TAKE ONE CAPSULE BY MOUTH DAILY WITH FOOD Hospital Course: Patient admitted for ongoing wound care and Hydration therapy. She has history of failure to thrive, DM and was on Farxiga at home. Patient unable to care for self. VS and Labs have stablized and patient feeling much better. Needs wound care for wound on bilateral buttocks and ankles, have not been staged. She was sent out for debridement and has been getting mepilex AG Q3D or prn. Discharge to [facility]. Adult protective service involved in patient case. Recent Head CT negative for any acute disease. Patient has been on NS @ 75ml/hr. Protonix. Print Language: [place]
[2025-01-09] MEDS: LEVOTHYROXINE SODIUM 75 MCG TABLET PO SCH (10:57)
== END 2025-01-09 11:14 ==
LOC: INTOOBSV 01:00 → MS 01:00
PROVIDERS: ADMIT Nurse Practitioner Family; ATTEND Family Medicine
DX: L89.100 Pressure ulcer of unspecified part of back, unstageable; Z79.84 Long term (current) use of oral hypoglycemic drugs; G89.29 Other chronic pain; R62.7 Adult failure to thrive; Z91.81 History of falling; Z79.51 Long term (current) use of inhaled steroids; E11.65 Type 2 diabetes mellitus with hyperglycemia; L89.520 Pressure ulcer of left ankle, unstageable; E83.51 Hypocalcemia; F03.90 Unspecified dementia, unspecified severity, without behavioral disturbance, psychotic disturbance, mood disturbance, and anxiety; F19.20 Other psychoactive substance dependence, uncomplicated; L89.510 Pressure ulcer of right ankle, unstageable; R41.82 Altered mental status, unspecified; D64.89 Other specified anemias; Z68.25 Body mass index [BMI] 25.0-25.9, adult; Z79.899 Other long term (current) drug therapy; E87.6 Hypokalemia; E86.0 Dehydration; Z79.890 Hormone replacement therapy; I10 Essential (primary) hypertension; E77.8 Other disorders of glycoprotein metabolism; Z88.3 Allergy status to other anti-infective agents; N17.9 Acute kidney failure, unspecified; E87.0 Hyperosmolality and hypernatremia; Z59.19 Other inadequate housing; M62.82 Rhabdomyolysis; Z79.4 Long term (current) use of insulin; I25.10 Atherosclerotic heart disease of native coronary artery without angina pectoris; Z86.73 Personal history of transient ischemic attack (TIA), and cerebral infarction without residual deficits; Z85.038 Personal history of other malignant neoplasm of large intestine; Z88.0 Allergy status to penicillin; E87.8 Other disorders of electrolyte and fluid balance, not elsewhere classified; E83.42 Hypomagnesemia; R53.81 Other malaise; Z88.5 Allergy status to narcotic agent; Z79.02 Long term (current) use of antithrombotics/antiplatelets; M06.9 Rheumatoid arthritis, unspecified; E88.09 Other disorders of plasma-protein metabolism, not elsewhere classified